=== PATIENT | female | born 1990 | race Caucasian/White ===

== ENCOUNTER 2024-09-22 00:23 | Emergency (ER) | payer SELFPAY ==
[~2024-09-22] VITALS: Ht 165.1 cm; Wt 98.0 kg
[2024-09-22 00:27] VITALS: O2SAT 98
[2024-09-22] MEDS: SODIUM CHLORIDE 0.9% 1,000 ML IV ONE ×2 (01:17→02:54)
[2024-09-22 01:19] LABS: BASOPHILS % 0.3 % (0.0-2.0); EOSINOPHILS % 0.3 % (0.0-5.0); HEMATOCRIT. 40.4 % (36.0-48.0); HEMOGLOBIN. 13.5 g/dL (12.0-16.0); LYMPHOCYTES % 9.5 % (20.0-50.0); MEAN PLATELET VOLUME 8.4 fl (7.4-10.4); MONOCYTES % 5.6 % (2.0-8.0); NEUTROPHILS % 84.3 % (40.0-76.0); PLATELET 200 x1000/uL (130-400); RED BLOOD CELL COUNT 4.67 mill/uL (4.2-5.4); RED CELL DISTRIBUTION WIDTH 13.2 % (11.6-14.6)
[2024-09-22 01:33] LABS: CREATININE 0.6 mg/dL (0.6-1.0)
[2024-09-22 01:34] LABS: ETHANOL BLOOD < 10 mg/dL (<10); TROPONIN I HIGH SENSITIVITY < 4 ng/L (3.0-34); UREA NITROGEN BLOOD 10 mg/dL (9-23)
[2024-09-22 01:35] LABS: ASPARTATE AMINOTRANSFERASE 26 IU/L (<34)
[2024-09-22 01:36] LABS: BILIRUBIN DIRECT < 0.1 mg/dL (<=3.0); BILIRUBIN TOTAL 0.4 mg/dL (0.1-1.0); PROTEIN TOTAL 6.5 g/dL (6.0-8.3)
[2024-09-22 01:38] LABS: HCG SCREEN NEGATIVE
[2024-09-22 01:51] LABS: INR 1.0
[2024-09-22 02:49] LABS: *AMPHETAMINES SCREEN URINE NEGATIVE (NEGATIVE); *BARBITURATES SCREEN URINE NEGATIVE (NEGATIVE); *BENZODIAZEPINES SCREEN URINE NEGATIVE (NEGATIVE)
[2024-09-22 02:50] LABS: *COCAINE SCREEN URINE NEGATIVE (NEGATIVE); CANNABINOID URINE SCREEN PRESUMPTIVE POSITIVE (NEGATIVE); ECSTASY MDMA SCREEN URINE NEGATIVE (NEGATIVE); METHADONE URINE SCREEN NEGATIVE (NEGATIVE); OPIATES URINE SCREEN NEGATIVE (NEGATIVE); PHENCYCLIDINE URINE SCREEN NEGATIVE (NEGATIVE)
[2024-09-22 03:23] VITALS: BP 103/47; PULSE 99; RESP 20; TEMP 36.7; O2SAT 98
== END 2024-09-22 03:45 | disposition home or self-care (01) ==
LOC: EDBD 00:23 → ER 00:23
DX: I95.9 Hypotension, unspecified (principal); E03.9 Hypothyroidism, unspecified; Z79.899 Other long term (current) drug therapy
CPT/HCPCS: 80076; 80305; 80048; 80320; 84703; 83735; 85025; 85610; 85730; 84484; 36415; 71045; 70450; 93005; 96360; 96361; 99285; J7030; G0480